=== PATIENT | female | born 1965 | race Caucasian/White ===

== ENCOUNTER 2018-09-12 18:05 | Emergency (ER) | payer BC ==
[~2018-09-12] VITALS: Ht 157.5 cm; Wt 57.7 kg
[~2018-09-12 18:05] MED LIST: MULT10VI3
[2018-09-12 18:12] VITALS: Ht 157.5 cm; Wt 57.7 kg
[2018-09-12] MEDS ORDERED: BENZ-6 PO (22:15)
[2018-09-12] MEDS ORDERED: IBUP-1542 PO (22:15)
[2018-09-12] MEDS ORDERED: BENZ1LOZ52 MM (22:16)
[2018-09-12] MEDS ORDERED: D-ME473S2 PO (22:16)
[2018-09-12] MEDS ORDERED: AMOX500C2 PO (22:16)
--- NOTE | 2018-09-12 22:21 | ERD ---
ER Documentation Chief Complaint Chief Complaint pt bib self with c/o fever, cough, aches, pains, sore throat x 4 days HPI Patient is a 53-year-old female with no past medical history presents the ER for concerns of intermittent tactile fevers, cough, generalized body aches, sore throat and voice hoarseness times 4 days. Patient states she has a productive cough with yellow phlegm production. Patient denies any nausea, vomiting, vomiting or diarrhea. Patient states that her voice is hoarse and her throat hurts when coughing. Patient denies any ear pain. She also reports nasal congestion. She denies any chest pain or shortness of breath. Patient denies any neck pain or neck stiffness. Patient states she been taking ibuprofen and natural medications for symptoms. No recent travel. ROS All systems reviewed and are negative except as per history of present illness. Medications Home Meds Active Scripts Benzocaine/Menthol* (Cepacol* Sore Throat Lozenges) 1 Each Lozenge, 1 EACH MM q2h PRN for SORE THROAT, #20 LOZENGE Prov:MILAD COLVIN PA-C 09/12/18 Amoxicillin* (Amoxicillin*) 500 Mg Cap, 500 MG PO BID for 7 Days, CAP Prov:MILAD COLVIN PA-C 09/12/18 Dextromethorphan Hb-Promethazine Hcl* (Promethazine DM* Syrup) 473 Ml Syrup, 5 ML PO Q6 PRN for COUGH, #4 OZ Prov:MILAD COLVIN PA-C 09/12/18 Benzonatate* (Tessalon Perle*) 100 Mg Capsule, 100 MG PO Q8H PRN for COUGH, #20 CAP Prov:MILAD COLVIN PA-C 09/12/18 Ibuprofen* (Motrin*) 600 Mg Tab, 600 MG PO Q6, #30 TAB Prov:MILAD COLVIN PA-C 09/12/18 Reported Medications Multivitamins (Mvi Adult) 10 Ml Soln 02/09/10 Allergies Allergies: Coded Allergies: No Known Drug Allergy (Unverified Allergy, Unknown, 04/24/06) No Known Allergy (Verified , 09/12/18) PMhx/Soc History of Surgery: Yes ([id number]) Anesthesia Reaction: No Hx Neurological Disorder: No Hx Respiratory Disorders: No Hx Cardiac Disorders: No Hx Psychiatric Problems: No Hx Miscellaneous Medical Probl: No Hx Alcohol Use: No Hx Substance Use: No Hx Tobacco Use: No Smoking Status: Never smoker FmHx Family History: No diabetes Physical Exam Vitals Vital Signs Date Temp Pulse Resp B/P (MAP) Pulse Ox O2 O2 Flow FiO2 Time Delivery Rate 09/12/18 98.7 89 20 115/57 98 18:12 (76) Physical Exam GENERAL: Well-developed, well-nourished female. Appears in no acute distress. Speaking in full sentences HEAD: Normocephalic, atraumatic. No deformities or ecchymosis. EYE: Pupils equal, round, and reactive to light. EOMs intact. No conjunctival erythema. No eye discharge. ENT: External ear without any masses or tenderness. Auditory canals clear bilaterally. TM visualized bilaterally, non-erythematous, non-bulging. Nasal mucosa pink with no discharge. Oropharynx is pink without any tonsillar erythema or exudates. No uvula deviation. No kissing tonsils. Hoarseness of voice noted. NECK: Supple. No meningismus. Normal ROM of the neck. LUNG: Clear to auscultation bilaterally. No rhonchi, wheezing, rales or coarse breath sounds. HEART: Regular rate and rhythm. No murmurs, rubs or gallops. EXTREMITIES: Equal pulses bilaterally. No peripheral clubbing, cyanosis or edema. No unilateral leg swelling. NEUROLOGIC: Alert and oriented to person, place and time. Moving all four extremities. 5/5 strength in all extremities. Normal speech. Steady gait. SKIN: Normal color. Warm and dry. No rashes or lesions. Procedures/MDM MEDICAL DECISION MAKING: This is a 53-year-old female no past medical history presents ER for concerns of tactile fevers, joint body aches, cough, nasal congestion, throat pain and voice hoarseness times 4 days. Vital signs were reviewed. Patient was afebrile. Patient was not hypoxic. ENT exam was concerning for laryngitis. Patient will be treated with course of antibiotics. Lung exam was normal. Patient likely has a viral syndrome. Low suspicion for pneumonia, meningitis, sinusitis, otitis externa, acute otitis media, strep pharyngitis, epiglottitis or peritonsillar abscess. Low suspicion for sepsis. Patient was nontoxic, non-ill appearing prior to discharge. PRESCRIPTIONS: Ibuprofen, Tessalon Perles, Promethazine cough syrup, amoxicillin, Cepacol throat lozenges DISCHARGE: At this time, patient is stable for discharge and outpatient management. Supportive therapies such as OTC throat lozenges, salt water gurgles, popsicles and jello discussed. I have instructed the patient to follow-up with his/her primary care physician in 1-2 days. I have instructed the patient to promptly return to the ER for any new or worsening symptoms including increased pain, swelling, fever, nausea, vomiting, weakness or difficulty breathing. The patient and/or family expressed understanding of and agreement with this plan. All questions were answered. Home care instructions were provided. Disclaimer: Inadvertent spelling and grammatical errors are likely due to EHR/dictation software use and do not reflect on the overall quality of patient care. Also, please note that the electronic time recorded on this note does not necessarily reflect the actual time of the patient encounter. Departure Diagnosis: Primary Impression: Laryngitis Additional Impression: Viral syndrome Condition: Fair Patient Instructions: Laryngitis, Viral Syndrome (Adult) Additional Instructions: Llame al doctor MAANA y frida kamala MAYELA PARA DENTRO DE 1-2 NOVA.Dgale a la secretaria que nosotros le instruimos hacer esta mayela.Avise o llame si arambula condicin se empeora antes de la mayela. Regresa aqui si peor o no mejor. MILAD COLVIN PA-C Sep 12, 2018 22:21
[2018-09-12 22:45] VITALS: BP 126/74; PULSE 77; RESP 20
== END 2018-09-12 22:45 | disposition home or self-care (01) ==
LOC: FTE 18:05
DX: J04.0 Acute laryngitis (principal); B34.9 Viral infection, unspecified
CPT/HCPCS: 99283